=== PATIENT | female | born 1995 | race Caucasian/White ===

== ENCOUNTER 2023-09-30 17:40 | Emergency (ER) | payer MEDICAID ==
[~2023-09-30] VITALS: Ht 157.5 cm; Wt 53.1 kg
[2023-09-30 17:43] VITALS: BP 115/72; PULSE 95; RESP 14; TEMP 98.2; O2SAT 98
[2023-10-01 12:08] LABS: HIV 1/0/2 ABS, QUAL Non Reactive (Non Reactive)
== END 2023-09-30 18:43 | disposition home or self-care (01) ==
LOC: MED 17:40
DX: Z11.3 Encounter for screening for infections with a predominantly sexual mode of transmission (principal)
CPT/HCPCS: 36415; 86702; 99283